=== PATIENT | female | born 1975 | race Caucasian/White ===

== ENCOUNTER 2020-03-21 14:40 | Emergency (ER) | payer MEDICAID, SELFPAY ==
--- NOTE | 2020-03-21 | XR_ITS ---
EXAMINATION: XR HAND, LEFT CLINICAL INFORMATION: Pain, injury. COMPARISON: None TECHNIQUE: PA, lateral, and oblique views of the left hand. FINDINGS: Soft tissue marker positioned at the level of the first metacarpal. No acute fracture or dislocation is seen. Joint spaces are maintained. No abnormal soft tissue calcification.. IMPRESSION: No acute fracture or dislocation seen.
[2020-03-21 15:48] VITALS: BP 108/39; PULSE 57; RESP 16; TEMP 37.2; O2SAT 100; BMI 22.8
--- NOTE | 2020-03-21 16:00 | ED_ITS ---
HPI - Extremity Problem General Chief complaint: Extremity Injury, Upper Stated complaint: L THUMB INJ Time Seen by Provider: 03/21/20 15:32 Source: patient Mode of arrival: ambulatory Limitations: no limitations History of Present Illness HPI Narrative: Left thumb pain x3 weeks. Patient tells me initially she had a trauma but she does not remember what happened. Continued pain since then. No fevers, chills, redness or swelling. MD Complaint: extremity pain Onset (ago): week(s) Pain Consistency: constant Location: left Quality: constant Radiation: distal Relieving factors: immobilization Exacerbating factors: range of motion and palpation Associated symptoms: denies other symptoms Related Data Allergies Allergy/AdvReac Type Severity Reaction Status Date / Time doxycycline Allergy Hives Verified 03/21/20 15:55 Review of Systems Review of Systems: Yes all other systems are reviewed and are negative Constitutional: Constitutional: Reports no additional constitutional complaints, Denies body ache(s), Denies chills, Denies fever(s), Denies headach e(s) and Denies weakness Eyes: Eyes: Reports no additional eye complaints and Denies change in vision ENT: Reports system reviewed and no additional complaints, except as documented, Denies dizziness, Denies headache(s), Denies nasal congestion, Denies nasal discharge and Denies neck pain Cardiovascular: Cardiovascular: Reports no additional cardiovascular complaints, Denies chest pain, Denies leg edema and Denies dyspnea Respiratory: Respiratory: Reports no additional respiratory complaints, Denies cough and Denies dyspnea Gastrointestinal: Gastrointestinal: Reports no additional gastrointestinal complaints, Denies abdominal pain, Denies diarrhea, Denies nausea and Denies vomiting Genitourinary: Genitourinary: Reports no additional female genitourinary complaints and Denies urinary incontinence Musculoskeletal: Musculoskeletal: Reports no additional musculoskeletal complaints, Denies back pain, Reports arthralgias, Denies joint swelling, Denies neck pain, Denies numbness and Denies tingling Integumentary/Breasts: Skin/Breast: Reports system reviewed and no additional complaints, except as docu and Denies rash Neurologic: Reports system reviewed and no additional complaints, except as documented, Denies Abnormal speech present, Denies dizziness, Denies headache(s), Denies numbness, Denies tingling and Denies weakness PMFSH Past Medical History Attestation statement: The following information was validated with the patient. Source: obtained from family and nursing notes reviewed Medical History No known health problems Social History Social History Alcohol intake: never Smoked in Last 30 Days: No Use of substances other than those prescribed or required for medical reasons: No Advance Directives: No Advance Directives Information Provided: Yes Physical Exam Vital Signs and I&O and Narrative: Vital Signs and I&O: Vital Signs Temp 98.9 F 03/21/20 15:48 Pulse 57 03/21/20 15:48 Resp 16 03/21/20 15:48 BP 108/39 L 03/21/20 15:48 Pulse Ox 100 03/21/20 15:48 Intake & Output 03/20/20 03/21/20 03/21/20 18:59 06:59 18:59 Weight 68.039 kg Body Mass Index 22.8 Const: General: cooperative, healthy appearing, comfortable and no acute distress Orientation/consciousness: patient oriented x3 Limitations: no limitations HENMT: Head: Yes normal to inspection Ears: hearing grossly normal bilaterally General nose exam: Normal external nose present Face and sinus: Yes normal facial exam Mouth: Normal oral and palatal mucosa present Throat: Yes posterior oropharynx normal Eyes: General: appearance normal, both eyes and all related structures Pupils: Equal, round and reactive pupils present Neck: Neck: Yes normal visual inspection Chest: Chest palpation & inspection: normal inspection of the chest Resp: Effort & Inspection: normal respiratory effort Auscultation: clear to auscultation bilaterally Cardio: Rate: regular rate Rhythm: regular rhythm Peripheral pulses: Peripheral pulses 2+ throughout GI: Inspection: Yes normal to inspection Palpation (GI): Soft to palpation and nontender Auscultation: normal bowel sounds Back/Spine/Pelvis: Thoracic/Lumbar Spine: thoracic and lumbar spine normal to inspection Skin: General skin exam: no rashes or lesions noted Neuro: General: patient oriented x3, no focal motor deficits and normal sensation to monofilament Cranial nerves: Yes Equal, round and reactive pupils present Cognition (Neuro): normal cognition Speech: No Abnormal speech present Gait exam (Neuro): Normal gait present Motor exam (neuro): 5/5 motor strength present throughout Extrem: General: Yes normal to inspection Left upper extremity: normal to inspection ( no erythema or warmth. Able to flex an extend the finger), normal capillary refill and hand ( Pain over the palmar thenar and PIP. pain with abduction of the thumb); no edema MDM - Extremity (Nontraumatic) MDM Narrative Medical decision making narrative: x-ray unremarkable. Likely sprain. Placed in velcro splint. Reviewed worrisome signs and symptoms of when to return to the emergency department very comfortable discharge home. Imaging Data hand x-ray: Attestation: I personally reviewed and interpreted this imaging study as follows: My impression: unremarkable Radiologist's impression: EXAMINATION: XR HAND, LEFT CLINICAL INFORMATION: Pain, injury. COMPARISON: None TECHNIQUE: PA, lateral, and oblique views of the left hand. FINDINGS: Soft tissue marker positioned at the level of the first metacarpal. No acute fracture or dislocation is seen. Joint spaces are maintained. No abnormal soft tissue calcification.. IMPRESSION: No acute fracture or dislocation seen. Discharge Plan Discharge Clinical Impression: Finger sprain Qualifiers: Encounter type: initial encounter Finger: thumb Sprain of finger site: unspecified site Laterality: left Qualified Code(s): S63.602A - Unspecified sprain of left thumb, initial encounter Patient Disposition: Home, Self-Care Instructions: Finger Sprain (ED) Additional Instructions: Splint at all times Ice to the area gentle stretching motrin or aleve at home Referrals: ED Physician,Generic [Emergency Provider] - 1 week Interventions: ED Discharge Assessment Last Done: 03/21/20 17:02 Discharge Date/Time: 03/21/20 17:04
== END 2020-03-21 17:04 | disposition home or self-care (01) ==
PROVIDERS: Emergency Provider Emergency Medicine
DX: S63.602A Unspecified sprain of left thumb, initial encounter (principal); M79.645 Pain in left finger(s); X58.XXXA Exposure to other specified factors, initial encounter; Y93.89 Activity, other specified; Y92.9 Unspecified place or not applicable; Y99.9 Unspecified external cause status
CPT/HCPCS: 73130; 99284

== ENCOUNTER 2020-09-27 22:37 | Emergency (ER) | payer MEDICAID, SELFPAY ==
--- NOTE | 2020-09-27 | ECG_ITS ---
Test Reason : L ARM PAIN, N/V Blood Pressure : / mmHG Vent. Rate : 064 BPM Atrial Rate : 064 BPM P-R Int : 162 ms QRS Dur : 074 ms QT Int : 398 ms P-R-T Axes : 068 035 042 degrees QTc Int : 410 ms Sinus rhythm with occasional Premature ventricular complexes Low voltage QRS Borderline ECG No previous ECGs available Referred By: Generic ED Physician Electronically Signed By:GINI EMMANUEL
[2020-09-27 23:00] VITALS: BP 115/53; PULSE 70; RESP 16; TEMP 36.6; O2SAT 98; BMI 22.7
[2020-09-27 23:20] LABS: Glucose Urine UA NEG (NEG); Leukocyte Esterase Urine NEG (NEG); Nitrite Urine NEG (NEG); PH 5.5 (5.0-8.0); Specific Gravity - Urine >= 1.030 (1.005-1.025); Urine Blood NEG (NEG); Urine Ketones NEG (NEG); Urine Protein NEG (NEG-TRACE)
[2020-09-27 23:24] LABS: Appearance Urine CLEAR; Color Urine YELLOW
[2020-09-27 23:25] LABS: UPreg QC Valid YES; Urine Pregnancy NEGATIVE (NEGATIVE)
== END 2020-09-28 00:30 | disposition left against medical advice (07) ==
PROVIDERS: Emergency Provider Emergency Medicine
DX: M79.602 Pain in left arm (principal); R06.02 Shortness of breath
CPT/HCPCS: 81003; 81025; 93005; 99283